=== PATIENT | female | born 2000 | race African-American/Black ===

== ENCOUNTER 2023-08-10 10:03 | Observation (INO) | payer SELFPAY ==
[2023-08-10] MEDS ORDERED: Acetaminophen 325 MG TAB PO PRN (10:11)
[2023-08-10 10:46] VITALS: BMI 38.5
[2023-08-10 17:12] VITALS: BP 126/89; TEMP 98.4
[2023-08-10 18:19] LABS: Hematocrit 20.3 % (34.9-44.5)
[2023-08-10] MEDS: Ferrous Sulfate 325 MG TAB PO SCH (21:01)
== END 2023-08-10 21:10 | disposition left against medical advice (07) ==
LOC: INTOOBSV 10:03 → CSHTELE 10:03
PROVIDERS: ADMIT Internal Medicine; ATTEND Nurse Practitioner Acute Care
DX: D50.9 Iron deficiency anemia, unspecified (principal); R06.02 Shortness of breath; R00.0 Tachycardia, unspecified; Z79.899 Other long term (current) drug therapy
CPT/HCPCS: 36416; 36430; 86850; 86900; 86901; G0378; P9016